=== PATIENT | female | born 1970 | race Two or more races ===

== ENCOUNTER 2016-08-13 22:59 | Emergency (ER) | payer OTHER ==
[2016-08-14] MEDS ORDERED: HYDROMORPHONE HCL 1 MG/ML SYRINGE ONE ×2 (01:15→01:58)
[2016-08-14] MEDS ORDERED: KETOROLAC TROMETHAMINE 60 MG/2 ML VIAL ONE (01:15)
[2016-08-14] MEDS ORDERED: ONDANSETRON 4 MG ODT TAB ONE (01:58)
== END 2016-08-14 02:18 | disposition home or self-care (01) ==
LOC: ED 22:59
DX: H60.91 Unspecified otitis externa, right ear (principal); J45.909 Unspecified asthma, uncomplicated